=== PATIENT | male | born 1980 | race Caucasian/White ===

== ENCOUNTER 2016-09-23 19:39 | Emergency (ER) | payer OTHER ==
[2016-09-23] MEDS ORDERED: CLINDAMYCIN 150 MG CAPSULE PO STA (21:17)
[2016-09-23] MEDS ORDERED: MUPIROCIN 2% OINT 1 GM TOP STA (21:17)
[2016-09-23] MEDS ORDERED: CLINDAMYCIN 150 MG CAPSULE PO ONE (21:19)
[2016-09-23] MEDS ORDERED: MUPIROCIN 2% OINT 1 GM ONE (21:19)
== END 2016-09-23 21:25 | disposition home or self-care (01) ==
DX: L03.032 Cellulitis of left toe (principal); E11.9 Type 2 diabetes mellitus without complications; Z79.84 Long term (current) use of oral hypoglycemic drugs
CPT/HCPCS: 99283; A9270

== ENCOUNTER 2017-03-12 13:07 | Outpatient (CLI) | payer OTHER ==
--- NOTE | 2017-03-12 15:02 | MRI Report ---
EXAM: LEFT SHOULDER MRI WITHOUT CONTRAST EXAM DATE: 03/12/2017 01:44 PM. CLINICAL HISTORY: BRACHIAL PLEXUS DISORDERS. COMPARISON: None. TECHNIQUE: Multiplanar, multisequence T1-weighted and fluid-sensitive sequences of the shoulder witho ut contrast. Other: None. FINDINGS: Images are degraded by patient motion artifacts. Acromioclavicular Region: The acromion is unipartite type II without downsloping. Mild osteoarthritis of the acromioclavicular joint with mild juxtaarticular edema, without abnormal effusion, joint sepa ration or significant undersurface hypertrophic spur. The acromioclavicular, coracoacromial and corac oclavicular ligaments are intact. Mild subacromial/subdeltoid bursitis with mild bursal fluid. Glenohumeral Region: No subluxation. No effusion or loose bodies. The articular cartilage is unremark able. The glenohumeral ligaments and joint capsule are unremarkable. Bone Marrow: No fracture, marrow edema or bone lesions. Labrum: There is tear in the anteroinferior labrum associated with multiple septated small paralabral cysts dissecting medially along the surface of the glenoid process. There is also suspicious abnorma l signal in the superior labrum concerning for a SLAP tear which cannot be confirmed on this nonarthr ographic study. Musculature/Rotator Cuff: Tendinosis in the subscapularis, supraspinatus and infraspinatus. Articular surface partial-thickness tear in the supraspinatus, mostly involving less than 50% of thickness exc ept a small focal area 3 mm in width and 1 mm in length involving about 80% of thickness. The teres m inor tendon is intact. No edema. Goutallier grade 3-4 fatty atrophy of the deltoid, grade 2 of the te res minor. The coracohumeral distance is normal, 11 mm. Biceps Tendon: Mild tendinosis of the intra-articular portion of the long head of the biceps tendon w ithout tear. The biceps charlette is intact. Other: The subcutaneous tissues are unremarkable. IMPRESSION: 1. Tendinosis in the subscapularis, supraspinatus, infraspinatus and the intra-articular portion of t he long head of the biceps tendon. 2. Articular surface partial-thickness tear in the supraspinatus, mostly involving less than 50% of t hickness except a small focal area 3 mm in width and 1 mm in length involving about 80% of thickness. 3. Tear in the anteroinferior labrum associated with multiple septated small paralabral cysts. There is also suspicious abnormal signal in the superior labrum concerning for a SLAP tear which cannot be confirmed on this nonarthrographic study. 4. Mild subacromial/subdeltoid bursitis. 5. Mild osteoarthritis of the acromioclavicular joint with mild juxtaarticular edema, without abnorma l effusion, joint separation or significant undersurface hypertrophic spur. 6. Goutallier grade 3-4 fatty atrophy of the deltoid, grade 2 of the teres minor. 7. If there is concern of brachial plexus abnormality, dedicated MRI for the brachial plexus may be c onsidered for further evaluation. [facility] Referring Provider Line: [phone] SITE ID: [id number]
== END 2017-03-12 13:08 | disposition home or self-care (01) ==
LOC: DI 13:07
PROVIDERS: ATTEND Internal Medicine
DX: M75.102 Unspecified rotator cuff tear or rupture of left shoulder, not specified as traumatic (principal); M75.52 Bursitis of left shoulder; M19.012 Primary osteoarthritis, left shoulder; S43.492A Other sprain of left shoulder joint, initial encounter

== ENCOUNTER 2017-03-16 01:00 | Emergency (ER) | payer OTHER ==
[2017-03-16] MEDS ORDERED: ASPIRIN CHEW 81 MG TABLET PO STA (01:26)
[2017-03-16] MEDS ORDERED: SODIUM CHLORIDE 0.9% 1,000 ML IV ONE ×2 (01:26→02:25)
[2017-03-16] MEDS ORDERED: ASPIRIN CHEW 81 MG TABLET ONE (01:51)
[2017-03-16] MEDS ORDERED: SODIUM CHLORIDE FLUSH 0.9% 10 ML SYRINGE IVP ONE ×3 (01:51→03:55)
--- NOTE | 2017-03-16 01:57 | XRAY Preliminary Report ---
Exam: XR CHEST 1 VIEW IMPRESSION: Normal single view chest. [facility] SITE ID: [id number]
[2017-03-16 02:03] LABS: ALBUMIN/GLOBULIN RATIO 1.5 (1.0-2.2); BILIRUBIN,TOTAL 0.7 mg/dL (0.2-1.0); CALCIUM 9.1 mg/dL (8.5-10.3); POTASSIUM 4.1 mmol/L (3.5-5.0); TOTAL PROTEIN 7.3 g/dL (6.7-8.2)
[2017-03-16 02:05] LABS: BASOPHILS # (AUTO) 0.1 10^3/uL (0.0-0.1); BASOPHILS % (AUTO) 0.9 %; EOSINOPHILS # (AUTO) 0.2 10^3/uL (0.0-0.7); EOSINOPHILS % (AUTO) 2.1 %; HCT - HEMATOCRIT 44.2 % (42.0-52.0); HGB - HEMOGLOBIN 15.7 g/dL (14.0-18.0); LYMPHOCYTES # (AUTO) 2.9 10^3/uL (1.5-3.5); LYMPHOCYTES % (AUTO) 39.8 %; MEAN CORPUSCULAR HEMOGLOBIN 31.2 pg (27.0-31.0); MEAN CORPUSCULAR HGB CONC 35.5 g/dL (32.0-36.0); MEAN CORPUSCULAR VOLUME 87.9 fL (80.0-94.0); MEAN PLATELET VOLUME 10.9 fL (7.4-11.4); MONOCYTES # (AUTO) 0.6 10^3/uL (0.0-1.0); MONOCYTES % (AUTO) 8.6 %; NEUTROPHILS # (AUTO) 3.5 10^3/uL (1.5-6.6); NEUTROPHILS % (AUTO) 48.6 %; NUCLEATED RED BLOOD CELLS AUTO 0.2 /100WBC; RED BLOOD COUNT 5.03 10^6/uL (4.70-6.10); RED CELL DISTRIBUTION WIDTH 12.2 % (12.0-15.0); UNCORRECTED WHITE BLOOD COUNT 7.3 x10^3/uL; WHITE BLOOD COUNT 7.3 x10^3/uL (4.8-10.8)
[2017-03-16] MEDS ORDERED: INSULIN REGULAR HUMAN 100 UNIT/1 ML 10 ML MDV IVP STA ×2 (02:12→03:48)
[2017-03-16] MEDS ORDERED: INSULIN REGULAR HUMAN 100 UNIT/1 ML 10 ML MDV ONE ×2 (02:26→03:54)
--- NOTE | 2017-03-16 02:29 | XRAY Report ---
EXAM: CHEST RADIOGRAPHY EXAM DATE: 03/16/2017 01:45 AM. CLINICAL HISTORY: Left-sided pain. COMPARISON: 09/06/2015. TECHNIQUE: 1 view. FINDINGS: Lungs/Pleura: No focal opacities evident. No pleural effusion. No pneumothorax. Mediastinum: Within exam limitations, the cardiomediastinal contour is normal. Other: None. IMPRESSION: Normal single view chest. [facility] Referring Provider Line: [phone] SITE ID: [id number]
[2017-03-16 02:36] LABS: BILIRUBIN,URINE NEGATIVE (NEGATIVE)
[2017-03-16 02:39] LABS: UA CHARGE (STRIP ONLY) YES; UR CULTURE IF IND NOT INDICATED
--- NOTE | 2017-03-16 03:41 | ED Physician Documentation ---
History of Present Illness - Stated complaint Stated Complaint: DIZZINESS,L ARM PX - Chief complaint Chief Complaint: Trauma Hd/Nk - History obtained from History obtained from: Patient - History of Present Illness Timing: Today - Additonal information Additional information: Patient is a 36 year old male with a history of type 2 diabetes who is presenting to the emergency department for dizziness, neck pain, back pain and left arm pain. Patient states that he noticed it tonight. He states that when he stood up his heart rate would speed up and when he sat back down he would get dizzy. Patient states that it happened to him 3-4 times this evening. Patient states that he has had symptoms like this once before. Patient also reports that his dad had a heart attack while in his 30s. Patient denied any chest pain or shortness of breath. Review of Systems Constitutional: denies: Fever, Chills Eyes: denies: Decreased vision, Photophobia Ears: reports: Ear pain, Other (ear fullness) Nose: denies: Rhinorrhea / runny nose, Congestion Throat: denies: Sore throat Cardiac: denies: Chest pain / pressure, Palpitations, Pedal edema Respiratory: denies: Cough, Wheezing GI: denies: Nausea, Vomiting, Constipation, Diarrhea : reports: Frequency. denies: Dysuria Skin: denies: Rash, Lesions Musculoskeletal: reports: Neck pain, Back pain, Extremity pain Neurologic: reports: Numbness. denies: Generalized weakness, Focal weakness, Difficulty speaking, Syncope, Headache Psychiatric: denies: Depressed, Suicidal PD PAST MEDICAL HISTORY - Past Medical History Past Medical History: Yes Cardiovascular: Hypertension Respiratory: None Neuro: None Endocrine/Autoimmune: Type 2 diabetes GI: None : None HEENT: None Psych: None Musculoskeletal: None Derm: None - Past Surgical History Past Surgical History: Yes - Present Medications Home Medications: Ambulatory Orders Medication Instructions Recorded Confirmed Lisinopril 10 mg PO DAILY 10/29/14 03/16/17 metFORMIN [Glucophage] 1,000 mg PO BID 10/29/14 03/16/17 - Allergies Allergies/Adverse Reactions: Allergies Allergy/AdvReac Type Severity Reaction Status Date / Time No Known Drug Allergies Allergy Verified 09/23/16 19:45 - Social History Does the pt smoke?: Yes Smoking Status: Current some day smoker Does the pt drink ETOH?: No Does the pt have substance abuse?: No - Immunizations Immunizations are current?: Yes PD ED PE NORMAL - Vitals Vital signs reviewed: Yes - General General: Alert and oriented X 3, No acute distress, Well developed/nourished - HEENT HEENT: Atraumatic, PERRL, Pharynx benign - Neck Neck: Supple, no meningeal sign, No JVD - Cardiac Cardiac: RRR, No murmur - Respiratory Respiratory: No respiratory distress, Clear bilaterally - Abdomen Abdomen: Soft, Non tender, Non distended - Derm Derm: Normal color, Warm and dry, No rash - Extremities Extremities: No tenderness to palpate, No calf tenderness / cord - Neuro Neuro: Alert and oriented X 3, No motor deficit, No sensory deficit, Normal speech - Psych Psych: Normal mood, Normal affect PD ED PE EXPANDED - HEENT HEENT: Dry mucous membranes Results - Vitals Vitals: Vital Signs - 24 hr 03/16/17 03/16/17 03/16/17 01:06 02:34 04:45 Temperature 36.3 C L Heart Rate 94 81 80 Respiratory 18 18 18 Rate Blood Pressure 158/104 H 144/86 H 131/74 H O2 Saturation 98 96 99 Oxygen O2 Source Room air - EKG (time done) 0158 Rate: Rate (enter#) (80) Rhythm: NSR [place]: Normal, Anterior hemiblock Intervals: Normal [place] QRS: Normal Ischemia: ST elevation c/w repol Compare to prior EKG: Old EKG unavailable 0334 Rate: Rate (enter#) (81) Rhythm: NSR [place]: Anterior hemiblock QRS: Normal Compare to prior EKG: Unchanged from prior EKG - Labs Labs: Laboratory Tests 03/16/17 03/16/17 03/16/17 01:40 01:40 01:40 WBC RBC Hgb Hct MCV MCH MCHC RDW Plt Count MPV Neut # Lymph # [place] # Eos # Baso # Absolute Nucleated RBC Nucleated RBC % Sodium 131 L Potassium 4.1 Chloride 98 L Carbon Dioxide 23 Anion Gap 10.0 BUN 18 Creatinine 1.0 Estimated GFR (MDRD) 84 L Glucose 436 H POC Whole Bld Glucose Calcium 9.1 Total Bilirubin 0.7 AST 34 ALT 51 Alkaline Phosphatase 70 Troponin I < 0.04 B-Natriuretic Peptide 8 Total Protein 7.3 Albumin 4.4 Globulin 2.9 Albumin/Globulin Ratio 1.5 Lipase 22 TSH Urine Color Urine Clarity Urine pH Ur Specific [place] Urine Protein Urine Glucose (UA) Urine Ketones Urine Occult Blood Urine Nitrite Urine Bilirubin Urine Urobilinogen Ur Leukocyte Esterase Ur Microscopic Review Urine Culture Comments 03/16/17 03/16/17 03/16/17 01:41 01:41 02:32 WBC 7.3 RBC 5.03 Hgb 15.7 Hct 44.2 MCV 87.9 MCH 31.2 H MCHC 35.5 RDW 12.2 Plt Count 141 MPV 10.9 Neut # 3.5 Lymph # 2.9 [place] # 0.6 Eos # 0.2 Baso # 0.1 Absolute Nucleated RBC 0.02 Nucleated RBC % 0.2 Sodium Potassium Chloride Carbon Dioxide Anion Gap BUN Creatinine Estimated GFR (MDRD) Glucose POC Whole Bld Glucose Calcium Total Bilirubin AST ALT Alkaline Phosphatase Troponin I B-Natriuretic Peptide Total Protein Albumin Globulin Albumin/Globulin Ratio Lipase TSH 3.43 Urine Color YELLOW Urine Clarity CLEAR Urine pH 6.0 Ur Specific [place] 1.010 Urine Protein NEGATIVE Urine Glucose (UA) >=1000 H Urine Ketones TRACE Urine Occult Blood NEGATIVE Urine Nitrite NEGATIVE Urine Bilirubin NEGATIVE Urine Urobilinogen 0.2 (NORMAL) Ur Leukocyte Esterase NEGATIVE Ur Microscopic Review NOT INDICATED Urine Culture Comments NOT INDICATED 03/16/17 03/16/17 03/16/17 03:26 03:27 04:43 WBC RBC Hgb Hct MCV MCH MCHC RDW Plt Count MPV Neut # Lymph # [place] # Eos # Baso # Absolute Nucleated RBC Nucleated RBC % Sodium Potassium Chloride Carbon Dioxide Anion Gap BUN Creatinine Estimated GFR (MDRD) Glucose POC Whole Bld Glucose 350 H 291 H Calcium Total Bilirubin AST ALT Alkaline Phosphatase Troponin I < 0.04 B-Natriuretic Peptide Total Protein Albumin Globulin Albumin/Globulin Ratio Lipase TSH Urine Color Urine Clarity Urine pH Ur Specific [place] Urine Protein Urine Glucose (UA) Urine Ketones Urine Occult Blood Urine Nitrite Urine Bilirubin Urine Urobilinogen Ur Leukocyte Esterase Ur Microscopic Review Urine Culture Comments - Rads (name of study) chest x-ray Radiology: Final report received (no acute abnormality) PD MEDICAL DECISION MAKING - ED course Complexity details: reviewed old records, reviewed results, re-evaluated patient , considered differential, d/w patient ED course: Patient was seen and examined at bedside. ekg was performed and was unchanged from patient's prior ekg. IV access was gained and labs were drawn. Patient was found to have a blood glucose of 450 but no ketones. Patient was treated with a 2 liter bolus and 5 units of insulin. repeat blood glucose was 350. Patient was treated with an additional 5 units of insulin and 0.5L of fluid. Patient's repeat troponin and ekg remained unchanged. Repeat blood glucose improved to 291. Patient was given detailed discharge and return instructions. Patient required no further work up and was stable for discharge with outpatient follow up. Departure - Departure Disposition: 01 Home, Self Care Clinical Impression: Chest pain, Hyperglycemia due to type 2 diabetes mellitus Condition: Good Instructions: ED Chest Pain NonCardiac Follow-Up: primary,care provider [Other] Comments: Your diagnostics today showed elevated blood glucose, but no signs of cardiovascular disease. while the tests were negative today, due to your risks factors it is important that you follow up with your doctor for repeat echo and stress test. It is also important that you keep tighter control of your blood glucose. You should talk with your doctor about changing your regiment but in the meantime you should decrease you fat, sugar and caloric content and increase your exercising. You may return to the emergency department at any time for new, worsening or uncontrollable symptoms. Forms: Activity restrictions
[2017-03-16] MEDS ORDERED: SODIUM CHLORIDE 0.9% 500 ML IV ONE (04:10)
[2017-03-16 04:46] VITALS: BP 131/74
== END 2017-03-16 04:56 | disposition home or self-care (01) ==
LOC: ED 01:00
DX: R07.9 Chest pain, unspecified (principal); E11.65 Type 2 diabetes mellitus with hyperglycemia; Z79.84 Long term (current) use of oral hypoglycemic drugs; I44.4 Left anterior fascicular block; R94.31 Abnormal electrocardiogram [ECG] [EKG]; I10 Essential (primary) hypertension; F17.200 Nicotine dependence, unspecified, uncomplicated
CPT/HCPCS: 36415; 71010; 80053; 81003; 83690; 83880; 84443; 84484; 85025; 93005; 96360; 96361; 99284; A9270; J1815; 81001; 87086